=== PATIENT | female | born 1995 | race Caucasian/White ===

== ENCOUNTER 2021-11-18 06:39 | Emergency (ER) | payer BC ==
[~2021-11-18 06:39] MED LIST: COLACE100 MG PO; CYMBALTA30 MG PO; IBU600 MG PO; LEVAQUIN750 MG PO; LIORESAL TAB 1010 MG PO; MOBIC15 MG PO; NORCO 5-325 TA1 EACH PO; PROTONIX 40 MG40 M1 PO; SOTALOL80 MG PO; TOPAMAX25 MG PO; TYLENOL 325MG325 MG PO; ZOFRAN4 MG PO
[2021-11-18 07:33] LABS: HEMOGLOBIN 13.5 gm/dl (12.3-15.3); RED BLOOD COUNT 4.3 M/UL (4.00-5.10); WHITE BLOOD COUNT 11.5 K/UL (4.5-11.0)
[2021-11-18 07:54] LABS: BUN/CREATININE RATIO 13 (0-10)
[2021-11-18] MEDS ORDERED: ZOFRAN ODT 4 MG4 MG SL (11:09)
[2021-11-18] MEDS ORDERED: LEVOFLOXACIN750 MG PO (11:09)
[2021-11-18] MEDS ORDERED: HYDROCODON-ACE1 EAC4 PO (11:09)
== END 2021-11-18 12:02 | disposition home or self-care (01) ==
LOC: ER1 06:39
PROVIDERS: Emergency Medicine
DX: N12 Tubulo-interstitial nephritis, not specified as acute or chronic (principal)
CPT/HCPCS: 71045; 80053; 81001; 83605; 83735; 84100; 84703; 85025; 86140; 87040; 87077; 87086; 87186; 96365; 96375; 99284; J1885; J2270; J2405; Q9967

== ENCOUNTER → 2021-12-17 | Outpatient (CLI) | payer BC, OTHER ==
[~2021-12-17] MED LIST changes: +HYDROCODON-ACE1 EAC4 PO; +LEVOFLOXACIN750 MG PO; +ZOFRAN ODT 4 MG4 MG SL
== END ==
LOC: KOH-I 10:44
DX: N10 Acute pyelonephritis (principal)
CPT/HCPCS: 74176